=== PATIENT | female | born 1945 | race Caucasian/White ===

== ENCOUNTER 2020-12-22 11:39 | Emergency (ER) | payer MEDICARE, OTHER ==
[~2020-12-22 11:39] MED LIST: ADULT ASPIRIN R81 MG PO; AMLODIPINE BESY10 MG PO; ATENOLOL50 MG PO; BENAZEPRIL HCL40 MG PO; CLARITIN10 MG PO; LASIX20 MG PO; LORAZEPAM1 MG PO; MONTELUKAST SOD10 MG PO; OMEPRAZOLE40 MG PO; ONDANSETRON ODT4 MG PO; OXYGEN; POTASSIUM CHLO10 ME1 PO; PRAVASTATIN SOD20 MG PO; VENTOLIN HFA IN18 GM INH; VITAMIN B-121000 MC1 PO
[2020-12-22 12:38] LABS: BASOPHIL 0.3 % (0-2); EOSINOPHIL 0.9 % (0-7); LYMPHOCYTE 10.5 % (15-48); MCH 27.5 pg (25.0-31.0); MCHC 27.5 g/dL (32.0-36.0); MONOCYTE 6.2 % (0-12); MPV 12.9 fL (6.0-9.5); NEUTROPHIL 81.7 % (41-80); NRBC 0; RDW 15.6 % (11.5-14.0); WBC 6.8 K/uL (4.0-10.5)
[2020-12-22 12:42] LABS: HGB 5.5 g/dl (12.5-16.0)
[2020-12-22 12:43] LABS: ALBUMIN 2.6 g/dL (3.4-5.0); BILIRUBIN - TOTAL 0.5 mg/dL (0.2-1.0); BUN/CREAT RATIO (CALC) 11.1 RATIO; CREATININE 0.99 mg/dL (0.51-0.95); GLOBULIN (CALCULATION) 3.7 g/dL; POTASSIUM 4.3 mmol/L (3.5-5.1); TOTAL PROTEIN 6.3 g/dL (6.4-8.2)
[2020-12-22 12:59] LABS: PLT 195 K/uL (150-400)
[2020-12-22 13:15] LABS: BILIRUBIN 2+ mg/dL (NEGATIVE); BLOOD NEGATIVE Ery/uL (NEGATIVE); CLARITY CLEAR (CLEAR); COLOR YELLOW (YELLOW); GLUCOSE (U) NORMAL (NORMAL); LEUKOCYTES NEGATIVE Leu/uL (NEGATIVE); NITRITE NEGATIVE (NEGATIVE); PROTEIN TRACE (LOW) mg/dL (NEGATIVE); SPECIFIC GRAVITY 1.015 (1.001-1.030)
[2020-12-22 13:24] LABS: BACTERIA TRACE; SQUAMOUS EPITHELIAL CELLS RARE; URINARY WBC RARE
[2020-12-22 14:02] LABS: CORONAVIRUS 2019 SARS-COV-2 NEGATIVE (NEGATIVE); INFLUENZA A NAA NEGATIVE (NEGATIVE)
== END 2020-12-22 19:45 | disposition other institution (70) ==
LOC: FER 11:39
PROVIDERS: Emergency Medicine
DX: K92.1 Melena (principal); K92.0 Hematemesis; D64.9 Anemia, unspecified; E11.22 Type 2 diabetes mellitus with diabetic chronic kidney disease; I12.9 Hypertensive chronic kidney disease with stage 1 through stage 4 chronic kidney disease, or unspecified chronic kidney disease; N18.9 Chronic kidney disease, unspecified; J44.9 Chronic obstructive pulmonary disease, unspecified; F17.200 Nicotine dependence, unspecified, uncomplicated; Z99.81 Dependence on supplemental oxygen; Z88.2 Allergy status to sulfonamides; Z79.82 Long term (current) use of aspirin; Z79.899 Other long term (current) drug therapy; Z20.822 Contact with and (suspected) exposure to COVID-19
CPT/HCPCS: 36415; 36430; 71250; 80053; 81001; 82270; 83880; 84484; 85025; 86850; 86900; 86901; 86922; 87040; 87088; 93005; 94640; 94664; C9113; J2405; J7040; P9016; U0002

== ENCOUNTER 2021-01-09 22:26 | Inpatient (IN) | payer MEDICARE, OTHER ==
[2021-01-10 00:35] LABS: BASOPHIL 0.2 % (0-2); EOSINOPHIL 0.2 % (0-7); HCT 22.6 % (37.0-47.0); HGB 7.1 g/dl (12.5-16.0); MCHC 31.4 g/dL (32.0-36.0); MONOCYTE 4.8 % (0-12); MPV 12.1 fL (6.0-9.5); NRBC 0; PLT 151 K/uL (150-400); RBC 2.54 M/uL (4.20-5.40); RDW 14.8 % (11.5-14.0); WBC 9.2 K/uL (4.0-10.5)
[2021-01-10 00:52] LABS: ALBUMIN 2.7 g/dL (3.4-5.0); BILIRUBIN - TOTAL 0.9 mg/dL (0.2-1.0); BUN/CREAT RATIO (CALC) 26.7 RATIO; CREATININE 1.2 mg/dL (0.51-0.95); GLOBULIN (CALCULATION) 3.8 g/dL; POTASSIUM 2.7 mmol/L (3.5-5.1); TOTAL PROTEIN 6.5 g/dL (6.4-8.2)
[2021-01-10] MEDS ORDERED: NORCO 5-325 TA1 EACH PO (04:44)
[2021-01-10] MEDS ORDERED: 3IN1 COMMODE (04:46)
[2021-01-10] MEDS ORDERED: REGLAN10 MG PO ×2 (04:46→04:47)
[2021-01-10] MEDS ORDERED: ATROVENT HFA12.9 GM INH (04:48)
[2021-01-10 08:57] LABS: BASOPHIL 0.3 % (0-2); EOSINOPHIL 0.7 % (0-7); HCT 24.1 % (37.0-47.0); HGB 7.9 g/dl (12.5-16.0); LYMPHOCYTE 9.7 % (15-48); MCH 28.5 pg (25.0-31.0); MCHC 32.8 g/dL (32.0-36.0); MONOCYTE 5.3 % (0-12); MPV 11.6 fL (6.0-9.5); NEUTROPHIL 83.4 % (41-80); NRBC 0; PLT 122 K/uL (150-400); RBC 2.77 M/uL (4.20-5.40); RDW 14.4 % (11.5-14.0); WBC 8.9 K/uL (4.0-10.5)
[2021-01-10 09:10] LABS: BUN/CREAT RATIO (CALC) 28.8 RATIO; CREATININE 1.04 mg/dL (0.51-0.95); POTASSIUM 3.6 mmol/L (3.5-5.1)
[2021-01-10 20:17] LABS: BASOPHIL 0.4 % (0-2); EOSINOPHIL 1.7 % (0-7); HCT 28.2 % (37.0-47.0); HGB 9.2 g/dl (12.5-16.0); LYMPHOCYTE 10.2 % (15-48); MCH 28.8 pg (25.0-31.0); MCHC 32.6 g/dL (32.0-36.0); MCV 88.4 fL (78.0-100.0); MPV 11.9 fL (6.0-9.5); NEUTROPHIL 80.4 % (41-80); NRBC 0; PLT 112 K/uL (150-400); RBC 3.19 M/uL (4.20-5.40); RDW 14.1 % (11.5-14.0); WBC 7.2 K/uL (4.0-10.5)
[2021-01-10 20:30] LABS: BAND 3 % (0-10); BASOPHIL(M) 0 % (0-2); EOSINOPHIL(M) 3 % (0-7); LYMPHOCYTE(M) 8 % (15-48); MONOCYTE(M) 6 % (0-12); NEUTROPHILS(M) 80 % (41-80); PLATELET ESTIMATE NORMAL; PLATELET MORPHOLOGY NORMAL; TOTAL CELL COUNT 100
[2021-01-11 06:15] LABS: BASOPHIL 0.3 % (0-2); EOSINOPHIL 1.4 % (0-7); HCT 26.5 % (37.0-47.0); HGB 8.7 g/dl (12.5-16.0); MCH 28.6 pg (25.0-31.0); MCHC 32.8 g/dL (32.0-36.0); MCV 87.2 fL (78.0-100.0); MONOCYTE 6.3 % (0-12); NEUTROPHIL 82.8 % (41-80); NRBC 0; PLT 106 K/uL (150-400); RBC 3.04 M/uL (4.20-5.40); RDW 14.1 % (11.5-14.0); WBC 6.5 K/uL (4.0-10.5)
[2021-01-11 06:29] LABS: BUN/CREAT RATIO (CALC) 25.3 RATIO; CREATININE 0.95 mg/dL (0.51-0.95); MAGNESIUM 1.7 mg/dL (1.8-2.4); PHOSPHORUS 1.7 mg/dL (2.6-4.7); POTASSIUM 3.4 mmol/L (3.5-5.1)
[2021-01-12 06:45] LABS: BILIRUBIN NEGATIVE (NEGATIVE); BLOOD 2+ Ery/uL (NEGATIVE); CLARITY CLOUDY (CLEAR); COLOR YELLOW (YELLOW); GLUCOSE (U) NORMAL (NORMAL); LEUKOCYTES 3+ Leu/uL (NEGATIVE); NITRITE NEGATIVE (NEGATIVE); PROTEIN 1+ mg/dL (NEGATIVE); pH 6.5 (5.0-9.0)
[2021-01-12 06:51] LABS: URINARY WBC TNTC
[2021-01-12 06:53] LABS: BACTERIA 4+
[2021-01-12 08:23] LABS: BASOPHIL 0.4 % (0-2); EOSINOPHIL 1.8 % (0-7); HCT 24.6 % (37.0-47.0); LYMPHOCYTE 14.5 % (15-48); MCH 29.1 pg (25.0-31.0); MCHC 32.5 g/dL (32.0-36.0); MCV 89.5 fL (78.0-100.0); MONOCYTE 5.7 % (0-12); MPV 11.9 fL (6.0-9.5); NEUTROPHIL 76.6 % (41-80); NRBC 0; PLT 93 K/uL (150-400); RBC 2.75 M/uL (4.20-5.40); RDW 14.4 % (11.5-14.0); WBC 4.9 K/uL (4.0-10.5)
[2021-01-12 08:45] LABS: BUN/CREAT RATIO (CALC) 19.3 RATIO; CREATININE 0.88 mg/dL (0.51-0.95); PHOSPHORUS 1.5 mg/dL (2.6-4.7); POTASSIUM 3.5 mmol/L (3.5-5.1)
[2021-01-12 08:55] LABS: MAGNESIUM 1.3 mg/dL (1.8-2.4)
[2021-01-12 15:05] LABS: HCT 27.5 % (37.0-47.0); HGB 8.9 g/dl (12.5-16.0); MCH 29.1 pg (25.0-31.0); MCHC 32.4 g/dL (32.0-36.0); MCV 89.9 fL (78.0-100.0); MPV 12.3 fL (6.0-9.5); RBC 3.06 M/uL (4.20-5.40); RDW 14.6 % (11.5-14.0); WBC 8.1 K/uL (4.0-10.5)
[2021-01-13 04:14] LABS: BASOPHIL 0.4 % (0-2); EOSINOPHIL 2.3 % (0-7); LYMPHOCYTE 12.3 % (15-48); MCH 28.9 pg (25.0-31.0); MCV 90.3 fL (78.0-100.0); MONOCYTE 4.5 % (0-12); MPV 11.6 fL (6.0-9.5); NRBC 0; PLT 90 K/uL (150-400); RBC 2.77 M/uL (4.20-5.40); RDW 14.4 % (11.5-14.0); WBC 5.6 K/uL (4.0-10.5)
[2021-01-13 04:36] LABS: NEUTROPHIL 79.4 % (41-80)
[2021-01-13 04:45] LABS: CREATININE 0.8 mg/dL (0.51-0.95); POTASSIUM 4.1 mmol/L (3.5-5.1)
[2021-01-13 04:46] LABS: MAGNESIUM 1.9 mg/dL (1.8-2.4); PHOSPHORUS 1.9 mg/dL (2.6-4.7)
[2021-01-13 16:26] LABS: HCT 25.2 % (37.0-47.0); HGB 8.1 g/dl (12.5-16.0); MCH 29.1 pg (25.0-31.0); MCHC 32.1 g/dL (32.0-36.0); MCV 90.6 fL (78.0-100.0); MPV 12.2 fL (6.0-9.5); RBC 2.78 M/uL (4.20-5.40); RDW 14.4 % (11.5-14.0); WBC 7.9 K/uL (4.0-10.5)
[2021-01-14 05:58] LABS: BASOPHIL 0.2 % (0-2); EOSINOPHIL 1.6 % (0-7); HCT 22.4 % (37.0-47.0); LYMPHOCYTE 12.2 % (15-48); MCH 28.5 pg (25.0-31.0); MCHC 31.3 g/dL (32.0-36.0); MCV 91.1 fL (78.0-100.0); MONOCYTE 4.5 % (0-12); MPV 11.9 fL (6.0-9.5); NEUTROPHIL 80.2 % (41-80); NRBC 0; RBC 2.46 M/uL (4.20-5.40); RDW 14.6 % (11.5-14.0); WBC 6.4 K/uL (4.0-10.5)
[2021-01-14 06:14] LABS: BUN/CREAT RATIO (CALC) 15.7 RATIO; CREATININE 0.7 mg/dL (0.51-0.95); MAGNESIUM 1.6 mg/dL (1.8-2.4); POTASSIUM 4.1 mmol/L (3.5-5.1)
[2021-01-14 06:45] LABS: PLT 71 K/uL (150-400)
[2021-01-14 11:31] LABS: HCT 22.5 % (37.0-47.0); HGB 7.2 g/dl (12.5-16.0); MCH 28.9 pg (25.0-31.0); MCV 90.4 fL (78.0-100.0); MPV 12.3 fL (6.0-9.5); RBC 2.49 M/uL (4.20-5.40); RDW 14.4 % (11.5-14.0); WBC 7.1 K/uL (4.0-10.5)
[2021-01-15 09:47] LABS: BASOPHIL 0.4 % (0-2); EOSINOPHIL 1.2 % (0-7); HCT 28.8 % (37.0-47.0); LYMPHOCYTE 8.1 % (15-48); MCH 29.4 pg (25.0-31.0); MCHC 33.3 g/dL (32.0-36.0); MCV 88.1 fL (78.0-100.0); MONOCYTE 4.3 % (0-12); MPV 12.1 fL (6.0-9.5); NEUTROPHIL 84.6 % (41-80); NRBC 0; RBC 3.27 M/uL (4.20-5.40); RDW 13.8 % (11.5-14.0); WBC 7.7 K/uL (4.0-10.5)
[2021-01-15 09:51] LABS: HGB 9.6 g/dl (12.5-16.0); PLT 60 K/uL (150-400)
[2021-01-15 10:14] LABS: BUN/CREAT RATIO (CALC) 18.4 RATIO; CREATININE 0.76 mg/dL (0.51-0.95); POTASSIUM 3.6 mmol/L (3.5-5.1)
[2021-01-15] MEDS ORDERED: CIPRO250 MG PO (14:08)
[2021-01-15] MEDS ORDERED: REGLAN10 MG PO (14:08)
[2021-01-15] MEDS ORDERED: OMEPRAZOLE40 MG PO (14:35)
== END 2021-01-15 15:57 | disposition home health service (06) | DRG 378 ==
LOC: FER 22:26 → FMS 01-10 02:06
PROVIDERS: Emergency Medicine; Nurse Practitioner; Student in an Organized Health Care Education/Training Program; ADMIT Internal Medicine
PROC: 02HV33Z Insertion of Infusion Device into Superior Vena Cava, Percutaneous Approach (ICD-10-PCS; principal; 2021-01-12)
PROC: 30233N1 Transfusion of Nonautologous Red Blood Cells into Peripheral Vein, Percutaneous Approach (ICD-10-PCS; 2021-01-12)
PROC: 0DB68ZX Excision of Stomach, Via Natural or Artificial Opening Endoscopic, Diagnostic (ICD-10-PCS; 2021-01-13)
PROC: 0D738ZZ Dilation of Lower Esophagus, Via Natural or Artificial Opening Endoscopic (ICD-10-PCS; 2021-01-13 07:30)
DX: K29.71 Gastritis, unspecified, with bleeding (principal); D62 Acute posthemorrhagic anemia; N30.00 Acute cystitis without hematuria; E78.5 Hyperlipidemia, unspecified; J44.9 Chronic obstructive pulmonary disease, unspecified; F41.1 Generalized anxiety disorder; E87.6 Hypokalemia; Z20.822 Contact with and (suspected) exposure to COVID-19; K44.9 Diaphragmatic hernia without obstruction or gangrene; N18.9 Chronic kidney disease, unspecified; I12.9 Hypertensive chronic kidney disease with stage 1 through stage 4 chronic kidney disease, or unspecified chronic kidney disease; K21.9 Gastro-esophageal reflux disease without esophagitis; F32.9 Major depressive disorder, single episode, unspecified; Z90.49 Acquired absence of other specified parts of digestive tract; Z88.2 Allergy status to sulfonamides; Z79.82 Long term (current) use of aspirin; K22.2 Esophageal obstruction; K30 Functional dyspepsia
CPT/HCPCS: 36415; 36430; 71045; 72193; 74018; 74246; 78264; 80048; 80053; 81001; 83605; 83735; 83880; 84100; 85025; 86850; 86900; 86901; 86922; 87076; 87088; 87186; 88305; 88342; 93005; 94640; A9541; C1726; C9113; G0378; J0696; J0780; J2250; J2354; J2704; J3475; J3480; J7040; J7050; J7120; P9016; Q9967; U0002